=== PATIENT | female | born 1995 | race Two or more races ===

== ENCOUNTER 2017-06-03 19:03 | Emergency (ER) | payer OTHER ==
[~2017-06-03] VITALS: Ht 165.1 cm; Wt 104.3 kg
--- NOTE | 2017-06-03 19:25 | NUR ---
BIB MOTHER C/O LEFT ARM PIT PAIN AND POSSIBLE ABSCESS X 4 DAYS. PT AOX3 RR EVEN AND UNLABORED. NO SOB NOTED. NAD NOTED. NO NVD AT THIS TIME. PT FOR MD ALVARADO.
[2017-06-03] MEDS ORDERED: TDAP [DIPH/PERTUSSIS/TET] 0.5 ML VIAL IM ONE ×3 (19:30→19:49)
[2017-06-03] MEDS ORDERED: HYDROCODONE/APAP 5/325MG 1 EACH TABLET PO ONE (19:30)
[2017-06-03] MEDS ORDERED: LIDOCAINE 1%-EPI 1:100,000 20 ML VIAL ONE (19:43)
[2017-06-03] MEDS ORDERED: HYDROCODONE/APAP 5/325MG 1 EACH TABLET ONE (19:45)
[2017-06-03 20:41] VITALS: BP 135/81
--- NOTE | 2017-06-03 20:41 | NUR ---
Patient discharged to home in stable condition. Written and verbal after care instructions given. Patient verbalizes understanding of instruction. Prescription given.
== END 2017-06-03 20:43 | disposition home or self-care (01) ==
LOC: ER 19:08
DX: L02.414 Cutaneous abscess of left upper limb (principal); I10 Essential (primary) hypertension; Z98.890 Other specified postprocedural states
CPT/HCPCS: 90715; A4606; A6402; A6403; A6407; J3490; Z7610

== ENCOUNTER 2017-06-04 23:53 | Emergency (ER) | payer OTHER ==
[~2017-06-04] VITALS: Ht 170.2 cm; Wt 81.6 kg
[2017-06-05 00:05] VITALS: BP 149/92
--- NOTE | 2017-06-05 04:00 | NUR ---
I & D SET UP AT BEDSIDE FOR .
--- NOTE | 2017-06-05 04:20 | NUR ---
BORDER BANDAGE APPLIED TO LEFT UPPER ARM.
== END 2017-06-05 04:40 | disposition home or self-care (01) ==
LOC: ER 23:56
DX: Z48.00 Encounter for change or removal of nonsurgical wound dressing (principal)
CPT/HCPCS: A4606; A6407; Z7502; Z7610

== ENCOUNTER 2017-12-01 17:27 | Emergency (ER) | payer OTHER ==
[~2017-12-01] VITALS: Ht 167.6 cm; Wt 111.6 kg
[2017-12-01] MEDS ORDERED: KETOROLAC TROMETHAMINE INJ 60 MG/2 ML VIAL IM ONE ×2 (18:00→19:54)
[2017-12-01] MEDS ORDERED: CYCLOBENZAPRINE 10 MG TABLET PO ONE (18:00)
[2017-12-01] MEDS ORDERED: CYCLOBENZAPRINE 10 MG TABLET ONE (19:54)
[2017-12-01 20:01] VITALS: BP 121/79
== END 2017-12-01 20:01 | disposition home or self-care (01) ==
LOC: ER 17:31
DX: S13.4XXA Sprain of ligaments of cervical spine, initial encounter (principal); M62.838 Other muscle spasm; F17.200 Nicotine dependence, unspecified, uncomplicated; V43.52XA Car driver injured in collision with other type car in traffic accident, initial encounter; Y93.89 Activity, other specified; Y92.413 State road as the place of occurrence of the external cause; Y99.8 Other external cause status
CPT/HCPCS: 71045; 84703; 96372; 99285; A4606; J1885; Z7610

== ENCOUNTER 2019-04-09 12:07 | Emergency (ER) | payer OTHER ==
[~2019-04-09] VITALS: Ht 167.6 cm; Wt 101.6 kg
[2019-04-09 12:16] VITALS: BP 154/107
--- NOTE | 2019-04-09 12:37 | NUR ---
Patient discharged to home in stable condition. Written and verbal after care instructions given. Patient verbalizes understanding of instruction.
== END 2019-04-09 12:39 | disposition home or self-care (01) ==
LOC: ER 12:11
DX: H11.32 Conjunctival hemorrhage, left eye (principal); F17.200 Nicotine dependence, unspecified, uncomplicated

== ENCOUNTER 2020-11-30 15:41 | Emergency (ER) | payer OTHER ==
[~2020-11-30] VITALS: Ht 167.6 cm; Wt 122.5 kg
[2020-11-30 15:48] VITALS: BP 149/86
--- NOTE | 2020-11-30 16:55 | NUR ---
Patient discharged to home in stable condition. Written and verbal after care instructions given. Patient verbalizes understanding of instruction.
== END 2020-11-30 16:55 | disposition home or self-care (01) ==
LOC: ER 15:48
DX: J02.9 Acute pharyngitis, unspecified (principal); F17.200 Nicotine dependence, unspecified, uncomplicated

== ENCOUNTER 2021-01-22 22:35 | Emergency (ER) | payer OTHER ==
[~2021-01-22] VITALS: Ht 165.1 cm; Wt 124.7 kg
--- NOTE | 2021-01-23 00:19 | NUR ---
BIBS. ER BED 6. AAOX4. NOT IN RESP DISTRESS. BREATHING EVEN AND UNLABORED BUT VERBALIZES DIFFICULTY BREATHING. PT IS SATTING AT 100%. PT IS AFEBRILE.MD WAS AT THE BEDSIDE FOR EVAL. ORDERS RECEIVED NOTED ADN CARRIED OUT.
--- NOTE | 2021-01-23 00:25 | NUR ---
XRAY AT BEDSIDE
--- NOTE | 2021-01-23 00:38 | NUR ---
COVID SWAB DONE AND SENT TO LAB
--- NOTE | 2021-01-23 01:53 | NUR ---
Patient discharged to home in stable condition. Written and verbal after care instructions given. Patient verbalizes understanding of instruction. Pt ambulatory with a steady gait
[2021-01-23 01:55] VITALS: BP 147/92
== END 2021-01-23 01:55 | disposition home or self-care (01) ==
LOC: ER 23:21
DX: J06.9 Acute upper respiratory infection, unspecified (principal); Z20.822 Contact with and (suspected) exposure to COVID-19; R03.0 Elevated blood-pressure reading, without diagnosis of hypertension
CPT/HCPCS: 71045; 87426; 87804; 99284; C9803

== ENCOUNTER 2021-07-23 10:19 | Emergency (ER) | payer OTHER ==
[~2021-07-23] VITALS: Ht 167.6 cm; Wt 124.7 kg
[2021-07-23 10:19] VITALS: BP 152/96
--- NOTE | 2021-07-23 10:25 | NUR ---
AT BEDSIDE FOR EVAL.
--- NOTE | 2021-07-23 10:31 | NUR ---
25 YRS FEMALe c/o neck pain for 3 for 3day no hx traum awake and alert
[2021-07-23] MEDS ORDERED: CYCL5TAB PO (10:39)
[2021-07-23] MEDS ORDERED: IBUP-1955 PO (10:39)
--- NOTE | 2021-07-23 10:44 | NUR ---
ed/c instraction and rx given to pt fully and verblized understood d/c home with rx
== END 2021-07-23 10:48 | disposition home or self-care (01) ==
LOC: ER 10:23
DX: S16.1XXA Strain of muscle, fascia and tendon at neck level, initial encounter (principal); X58.XXXA Exposure to other specified factors, initial encounter; Y93.89 Activity, other specified; Y92.89 Other specified places as the place of occurrence of the external cause; Y99.8 Other external cause status